=== PATIENT | female | born 1955 | race Caucasian/White ===

== ENCOUNTER 2018-12-10 13:22 | Outpatient (CLI) | payer OTHER ==
--- NOTE | 2018-12-10 16:13 | CT ---
CT CHEST WITH CONTRAST: History: Multiple axial tomograms obtained through chest with IV enhancement. Indications: Abdominal chest x-ray. The patient states that there is an abnormal chest x-ray performe d at the [facility]. However, there is chest x-ray found on the [facility] PACS system. No other recent chest radio graph available. The last chest radiograph at [facility] was performed in 2012. FINDINGS: Review of the lung castañeda reveals a 1.3 cm nodule in the right apex posteriorly in a paravertebral lo cation. There is associated parenchymal stranding at this location indicating that this may be chroni c parenchymal change although adjoined nodule or neoplasm cannot be excluded. There is stranding with a nodular density seen in the anterior right midlung, right upper lobe extend ing to the pleural surface, a nodule density associated with this stranding in the axial plane measur es 1.2 cm AP dimension. There is a focal area of stranding in the right middle lobe medially extending to the pericardial fat anteriorly. Mild chronic stranding in both lung bases. Small calcified granuloma in the left midlung. Calcified left hilar lymph nodes. No adenopathy. Images through the upper abdomen reveal a left adrenal mass measuring 3.3 cm AP dimension. Comparison is made to a CT chest from 09/2012, this mass was present at that time measuring 2.7 cm. IMPRESSION: 1. Soft tissue nodular densities are seen in the right upper and right middle lobes as described abov e. Consider PET scan to assess activity if there is suspicion of malignancy. If PET scan is not perfo rmed, short term follow up chest CT is recommended in 3-4 months to reevaluate. 2. Large left adrenal mass has slightly increased in size when compared to 2012. POS: [facility]
--- NOTE | 2018-12-10 16:19 | CT ---
CT NECK WITH CONTRAST: Technique: Multiple contiguous axial images were obtained through the neck with IV enhancement. Indications: Abnormal chest x-ray. No recent chest x-rays available for correlation. No reason given for CT neck exam. FINDINGS: Parotid glands and submandibular glands unremarkable. Thyroid unremarkable. Nasopharynx unremarkable. Review of the oropharynx shows abnormal density in Waldeyer's ring involving the palatine and lingual tonsils. There is asymmetry on the right. There is increased density in the region of the right sergei tristen tonsil. This should be further evaluated by ENT. Asymmetry extends into the right hypopharynx where the right vallecula is effaced with increased dens ity present. Pyriform sinuses appear symmetric. Larynx unremarkable. Retail Specialist space unremarkable. Parapharyngeal and retropharyngeal space unremarkable. Carotid space unremarkable. Nonspecific level II lymph nodes. A left level 2A lymph node measures up to 1.2 cm. Nonspecific level 2B lymph nodes posterior to the vascular bungle bilaterally. These measure up to 1.0 cm. Paranasal sinuses and mastoids are clear. Lung apices show nodularity on the right. See CT chest repo rt. IMPRESSION: 1. Prominence at Waldeyer's ring in the oropharynx with density more prominent and asymmetric on the right. There is asymmetric density extending inferiorly in the right hypopharynx effacing the right v allecula. Recommend direct ENT evaluation. POS: [facility]
[2018-12-10] MEDS ORDERED: ISOVUE-370 76%-LOCM 1 ML ONE (16:30)
== END 2018-12-10 13:23 | disposition home or self-care (01) ==
LOC: BICCT 13:22
PROVIDERS: ATTEND Internal Medicine
DX: R91.8 Other nonspecific abnormal finding of lung field (principal); J39.2 Other diseases of pharynx; J98.4 Other disorders of lung; E27.8 Other specified disorders of adrenal gland
CPT/HCPCS: 70491; 71260; Q9966

== ENCOUNTER 2018-12-25 15:45 | Outpatient (CLI) | payer OTHER ==
--- NOTE | 2018-12-26 16:26 | MMO ---
Bilateral MAMMO Bilat Screen [facility]. CLINICAL HISTORY: Patient is 63 years old and is seen for screening. The patient has the following family history of breast cancer: mother. VIEWS: The views performed were: bilateral craniocaudal with tomosynthesis and bilateral mediolateral oblique with tomosynthesis. FILMS COMPARED: The present examination has been compared to prior imaging studies performed at [facility] on 05/02/2011, 03/04/2013, 04/21/2014 and 05/04/2015. MAMMOGRAM FINDINGS: The breasts are heterogeneously dense, which could obscure a lesion on mammography. There are no suspicious masses, suspicious calcifications, or new areas of architectural distortion. IMPRESSION: THERE IS NO MAMMOGRAPHIC EVIDENCE OF MALIGNANCY. A ROUTINE FOLLOW-UP MAMMOGRAM IN 1 YEAR IS RECOMMENDED. THE RESULTS OF THIS EXAM WERE SENT TO THE PATIENT. ACR BI-RADS Category 1 - Negative MAMMOGRAPHY NOTE: 1. A negative mammogram report should not delay a biopsy if a dominant of clinically suspicious mass is present. 2. Approximately 10% to 15% of breast cancers are not detected by mammography. 3. Adenosis and dense breasts may obscure an underlying neoplasm.
== END 2018-12-25 15:46 | disposition home or self-care (01) ==
LOC: BICMAMMO 15:45
PROVIDERS: ATTEND Internal Medicine Medical Oncology
DX: Z12.31 Encounter for screening mammogram for malignant neoplasm of breast (principal); Z80.3 Family history of malignant neoplasm of breast
CPT/HCPCS: 77063; 77067

== ENCOUNTER 2019-01-10 11:22 | Outpatient (CLI) | payer OTHER ==
--- NOTE | 2019-01-10 13:13 | PET ---
Exam: PET CT skull to mid thigh COMPARISON: CT chest 12/10/2018 HISTORY: Pulmonary nodule TECHNIQUE: A PET/CT was performed from the skull to the mid thigh after administration of 10.4 millic uries of F-18 FDG. Evaluation was performed on a itzat workstation. FINDINGS: NECK: No areas of hypermetabolic activity CHEST: There is a 9 mm nodule in the posterior aspect of the right middle lobe which is hypermetaboli c with a maximum SUV value of 2.6. On the prior CT, this did not look as masslike as it does on today's examination. The other areas of nodularity in the right apex and in the anterior aspect of th e right middle lobe have resolved and no hypermetabolic activity is seen in these locations. ABDOMEN/PELVIS: No areas of hypermetabolic activity SKELETON: No areas of hypermetabolic activity CT images used for attenuation correction show calcified granulomas in the spleen and atherosclerotic calcifications in the aorta.. IMPRESSION: 1. Hypermetabolic right middle lobe pulmonary nodule. This appears to have developed since the prior CT one month ago. Although a malignant process is a possibility, an infectious process is of higher consideration given the development over the period of one month.
== END 2019-01-10 11:23 | disposition home or self-care (01) ==
LOC: PET 11:22
PROVIDERS: ATTEND Internal Medicine Critical Care Medicine
DX: R91.1 Solitary pulmonary nodule (principal)
CPT/HCPCS: 78815; A9552

== ENCOUNTER 2019-04-16 09:05 | Outpatient (CLI) | payer OTHER ==
--- NOTE | 2019-04-16 09:49 | CT ---
CT Chest WO Con HISTORY: Follow-up of pulmonary nodule COMPARISON: 12/10/2018 CT examination and 01/10/2019 PET scan. FINDINGS: The right upper lobe and right middle lobe parenchymal densities have now almost completely resolved with some minimal residual interstitial change in the right apex which may represent scar. Left lung is clear. I do not appreciate any mediastinal or hilar adenopathy on this study Visualized liver parenchyma shows no focal findings. IMPRESSION: Resolution of the nodular infiltrates in the right upper and middle lobe.
== END 2019-04-16 09:06 | disposition home or self-care (01) ==
LOC: BICCT 09:05
PROVIDERS: ATTEND Internal Medicine Critical Care Medicine
DX: R91.8 Other nonspecific abnormal finding of lung field (principal)
CPT/HCPCS: 71250

== ENCOUNTER 2019-04-18 14:45 | Outpatient (CLI) | payer OTHER ==
--- NOTE | 2019-04-18 16:03 | BD ---
Exam: DEXA Bone Density 04/18/19 HISTORY: Postmenopausal screening. COMPARISON: 03/04/13. Lumbar Spine: BMD (g/cm2) T-SCORE L1 0.781 -1.9 L2 0.805 -2.0 L3 0.890 -1.8 L4 0.869 -1.7 L1-L4 0.840 -1.9 Evidence for osteopenia with increased risk for fracture, bone mineral density has decreased approxim ately 4% when compared to the prior study. Left Femoral Neck: 0.637 -1.9 Total Femur: 0.793 -1.2 Evidence for osteopenia with increased risk for fracture, bone mineral density has decreased approxim ately 11% from 03/04/13. FRAX Score: Major osteoporotic fracture is 17%. Hip fracture is 1.1%. POS: [facility]
== END 2019-04-18 14:46 | disposition home or self-care (01) ==
LOC: BICMAMMO 14:45
PROVIDERS: ATTEND Internal Medicine
DX: Z13.820 Encounter for screening for osteoporosis (principal); Z78.0 Asymptomatic menopausal state; M85.89 Other specified disorders of bone density and structure, multiple sites
CPT/HCPCS: 77080

== ENCOUNTER 2020-07-27 11:43 | Outpatient (CLI) | payer BC ==
--- NOTE | 2020-07-27 11:59 | RAD ---
EXAM: Two views chest PROVIDED CLINICAL HISTORY: Dyspnea. Follow-up evaluation. COMPARISON: 07/30/2013 FINDINGS: Cardiac silhouette and pulmonary vasculature are within normal limits. There is question of minimal h azy density at the lateral right lung base likely related to superimposition of structures. Lungs are otherwise clear without consolidation or pleural fluid. Degenerative changes are seen in the spin e. Postoperative changes right shoulder are present. IMPRESSION: No acute cardiopulmonary process.
== END 2020-07-27 11:44 | disposition home or self-care (01) ==
LOC: BICRAD 11:43
PROVIDERS: ATTEND Internal Medicine Critical Care Medicine
DX: R06.00 Dyspnea, unspecified (principal)
CPT/HCPCS: 71046

== ENCOUNTER 2020-08-26 11:04 | Outpatient (CLI) | payer BC ==
--- NOTE | 2020-08-26 11:42 | MMO ---
Bilateral MAMMO Bilat Screen [facility]. CLINICAL HISTORY: Patient is 64 years old and is seen for screening. The patient has the following family history of breast cancer: mother. The patient has no personal history of cancer. VIEWS: The views performed were: bilateral craniocaudal with tomosynthesis and bilateral mediolateral oblique with tomosynthesis. FILMS COMPARED: The present examination has been compared to prior imaging studies performed at [facility] on 03/04/2013, 04/21/2014, 05/04/2015 and 12/25/2018. This study has been interpreted with the assistance of computer-aided detection. MAMMOGRAM FINDINGS: The breasts are heterogeneously dense, which could obscure a lesion on mammography. There are no suspicious masses, suspicious calcifications, or new areas of architectural distortion. IMPRESSION: THERE IS NO MAMMOGRAPHIC EVIDENCE OF MALIGNANCY. A ROUTINE FOLLOW-UP MAMMOGRAM IN 1 YEAR IS RECOMMENDED. THE RESULTS OF THIS EXAM WERE SENT TO THE PATIENT. ACR BI-RADS Category 1 - Negative MAMMOGRAPHY NOTE: 1. A negative mammogram report should not delay a biopsy if a dominant of clinically suspicious mass is present. 2. Approximately 10% to 15% of breast cancers are not detected by mammography. 3. Adenosis and dense breasts may obscure an underlying neoplasm. Reported by: FRANCY PADILLA MD Electonically Signed: [id number]
== END 2020-08-26 11:05 | disposition home or self-care (01) ==
LOC: BICMAMMO 11:04
PROVIDERS: ATTEND Internal Medicine
DX: Z12.31 Encounter for screening mammogram for malignant neoplasm of breast (principal); Z80.3 Family history of malignant neoplasm of breast
CPT/HCPCS: 77063; 77067

== ENCOUNTER 2021-07-07 14:54 | Outpatient (CLI) | payer MEDICARE | END 2021-07-07 14:55 | disposition home or self-care (01) | LOC: BICRAD 14:54 | PROVIDERS: ATTEND Internal Medicine Critical Care Medicine | DX: R06.00 Dyspnea, unspecified (principal) | CPT/HCPCS: 71046 ==

== ENCOUNTER 2022-08-01 15:48 | Outpatient (CLI) | payer MEDICARE | END 2022-08-01 15:49 | disposition home or self-care (01) | LOC: RAD 15:48 | PROVIDERS: ATTEND Internal Medicine Critical Care Medicine | DX: R06.03 Acute respiratory distress (principal); M47.814 Spondylosis without myelopathy or radiculopathy, thoracic region; J98.4 Other disorders of lung; Z98.890 Other specified postprocedural states | CPT/HCPCS: 71046 ==

== ENCOUNTER 2023-08-02 15:33 | Outpatient (CLI) | payer MEDICARE | END 2023-08-02 15:34 | disposition home or self-care (01) | LOC: RAD 15:33 | PROVIDERS: ATTEND Internal Medicine Critical Care Medicine | DX: R06.00 Dyspnea, unspecified (principal); J98.4 Other disorders of lung | CPT/HCPCS: 71046 ==

== ENCOUNTER 2024-08-14 15:23 | Outpatient (CLI) | payer MEDICARE | END 2024-08-14 15:24 | disposition home or self-care (01) | LOC: RAD 15:23 | PROVIDERS: ATTEND Internal Medicine Critical Care Medicine | DX: R06.00 Dyspnea, unspecified (principal); J44.9 Chronic obstructive pulmonary disease, unspecified | CPT/HCPCS: 71046 ==

== ENCOUNTER 2025-08-14 15:17 | Outpatient (CLI) | payer MEDICARE | END 2025-08-14 15:18 | disposition home or self-care (01) | LOC: RAD 15:17 | PROVIDERS: ATTEND Internal Medicine Critical Care Medicine | DX: R06.00 Dyspnea, unspecified (principal) | CPT/HCPCS: 71046 ==